=== PATIENT | male | born 1955 | race African-American/Black ===

== ENCOUNTER 2019-12-11 17:28 | Emergency (ER) | payer BC ==
--- NOTE | 2019-12-11 17:47 | ER Document Report ---
ED Medical Screen (RME) - General Chief Complaint: Dizziness Stated Complaint: LIGHTHEADED,BLURRED VISION Time Seen by Provider: 12/11/19 17:35 Primary Care Provider: LIANET GIANG FNP-C [Primary Care Provider] - Follow up as needed Mode of Arrival: Ambulatory Information source: Patient Notes: 64-year-old male presented to ED for complaint of dizziness blurry vision and pain in the back of the head. He states he took some blood pressure medicine 8 and took some gas pills. He states then he got very lightheaded. He states he developed blurry vision in the right eye and then the left eye and then they have gotten that is gotten much better. Now he has a pain in the back of his head. He states is a level 1 pain. He states he does smoke 1/2 pack a day does not drink or use any drugs. He does have a history of high blood pressure his blood pressure right now is 173/93. He took his blood pressure medicine which was clonidine. He states he is also has a history of COPD. Patient is alert oriented respirations regular nonlabored speaking in full sentences. There is no droop to his face. He has no palmar drift. 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 I have greeted and performed a rapid initial assessment of this patient. A comprehensive ED assessment and evaluation of the patient, analysis of test results and completion of medical decision making process will be conducted by an additional ED providers. TRAVEL OUTSIDE OF THE [place] IN LAST 30 DAYS: No - Related Data Allergies/Adverse Reactions: No Known Allergies Allergy (Verified 11/21/16 11:51) Home Medications: clonidine, symbicort Past Medical History - Social History Chew tobacco use (# tins/day): No Frequency of alcohol use: None Drug Abuse: None - Past Medical History Cardiac Medical History: Reports: Hx Hypertension Renal/ Medical History: Denies: Hx Peritoneal Dialysis Past Surgical History: Reports: Hx Appendectomy - Immunizations Hx Diphtheria, Pertussis, Tetanus Vaccination: No Physical Exam - Vital signs Vitals: Temp Pulse Resp BP Pulse Ox 98.1 F 91 16 174/93 H 98 12/11/19 17:34 12/11/19 17:34 12/11/19 17:34 12/11/19 17:34 12/11/19 17:34 Course - Vital Signs Vital signs: Temp Pulse Resp BP Pulse Ox 98.1 F 91 16 174/93 H 98 12/11/19 17:34 12/11/19 17:34 12/11/19 17:34 12/11/19 17:34 12/11/19 17:34 Doctor's Discharge - Discharge Referrals: LIANET GIANG FNP-C [Primary Care Provider] - Follow up as needed
--- NOTE | 2019-12-11 18:04 | RADIOLOGY REPORT (SQ) ---
EXAM DESCRIPTION: CT HEAD WITHOUT IMAGES COMPLETED DATE/TIME: 12/11/2019 5:52 pm REASON FOR STUDY: Headache, blurred vision, dizziness COMPARISON: CT head 11/21/2016 TECHNIQUE: Axial images acquired through the brain without intravenous contrast. Images reviewed wi th bone, brain and subdural windows. Images stored on PACS. All CT scanners at this facility use dose modulation, iterative reconstruction, and/or weight based d osing when appropriate to reduce radiation dose to as low as reasonably achievable (ALARA). [facility]: Dose Right [facility]: CareDose [facility]: Dose Right [facility]: Teradose 4D [facility]: [employer] RADIATION DOSE: CT Rad equipment meets quality standard of care and radiation dose reduction techniq ues were employed. CTDIvol: 53.2 mGy. DLP: 937 mGy-cm.mGy. LIMITATIONS: None. FINDINGS: VENTRICLES: Prominent. CEREBRUM: No mass effect. No hemorrhage. No midline shift. Areas of low density in the white matte r most likely due to chronic micro-vascular ischemic change. No evidence for acute territorial infar ction. CEREBELLUM: No hemorrhage. No alteration of density. No evidence for acute infarction. EXTRAAXIAL SPACES: Age-related involutional change. No fluid collections. ORBITS AND GLOBE: Symmetrical contour of the globes. CALVARIUM: No depressed fracture. PARANASAL SINUSES: No air-fluid level. SOFT TISSUES: No hematoma. IMPRESSION: CHRONIC CHANGES OF ATROPHY AND MICROVASCULAR ISCHEMIA. NO ACUTE PROCESS. EVIDENCE OF ACUTE STROKE: NO. TECHNICAL DOCUMENTATION: JOB ID: [id number] UT-64 Quality ID # [id number]: Final reports with documentation of one or more dose reduction techniques (e.g., Au tomated exposure control, adjustment of the mA and/or kV according to patient size, use of iterative reconstruction technique) 2010 [employer] All Rights Reserved Reading location - IP/workstation name: [email or web address]
[2019-12-11 18:15] LABS: ABSOLUTE BASOPHILS # (AUTO) 0.2 10^3/uL (0.0-0.2); ABSOLUTE EOSINOPHILS # (AUTO) 0.7 10^3/uL (0.0-0.6); ABSOLUTE LYMPHOCYTES (AUTO) 2.7 10^3/uL (0.5-4.7); ABSOLUTE MONOCYTES (AUTO) 0.8 10^3/uL (0.1-1.4); ABSOLUTE NEUT (AUTO) 3.8 10^3/uL (1.7-8.2); BASOPHILS % (AUTO) 1.9 % (0-2); EOSINOPHILS % (AUTO) 8.7 % (0-6); HEMATOCRIT 42.7 % (37.9-51.0); HEMOGLOBIN 14.7 g/dL (13.5-17.0); LYMPHOCYTES % (AUTO) 33.4 % (13-45); MEAN CORPUSCULAR HEMOGLOBIN 31.3 pg (27.0-33.4); MEAN CORPUSCULAR HGB CONC 34.5 g/dL (32.0-36.0); MEAN CORPUSCULAR VOLUME 91 fl (80-97); MONOCYTES % (AUTO) 9.7 % (3-13); PLATELET COUNT 276 10^3/uL (150-450); RED CELL DISTRIBUTION WIDTH 12.6 % (11.5-14.0); SEGMENTED NEUTROPHILS % (AUTO) 46.3 % (42-78); TOTAL CELLS COUNTED % (AUTO) 100 %; WHITE BLOOD COUNT 8.2 10^3/uL (4.0-10.5)
[2019-12-11 18:20] LABS: INTERNATIONAL RATION (INR) 0.89; PROTHROMBIN TIME 12.3 SEC (11.4-15.4)
[2019-12-11 18:21] LABS: PARTIAL THROMBOPLASTIN TIME 21.5 SEC (23.5-35.8)
[2019-12-11 18:36] LABS: ALBUMIN 4.7 g/dL (3.5-5.0); ALKALINE PHOSPHATASE 82 U/L (38-126); ANION GAP 9 (5-19); ASPARTATE AMINO TRANSFERASE 29 U/L (17-59); BILIRUBIN,DIRECT 0.4 mg/dL (0.0-0.4); BILIRUBIN,TOTAL 0.8 mg/dL (0.2-1.3); BLOOD UREA NITROGEN 17 mg/dL (7-20); CALCIUM 10.2 mg/dL (8.4-10.2); CARBON DIOXIDE 28 mmol/L (22-30); CHLORIDE 102 mmol/L (98-107); GLUCOSE 102 mg/dL (75-110); POTASSIUM 3.5 mmol/L (3.6-5.0)
[2019-12-11 18:39] LABS: APPEARANCE,URINE CLEAR; BILIRUBIN,URINE NEGATIVE (NEGATIVE); COLOR,URINE YELLOW; GLUCOSE, URINE NEGATIVE (NEGATIVE); KETONES,URINE NEGATIVE (NEGATIVE); LEUKOCYTE ESTERASE,URINE NEGATIVE (NEGATIVE); NITRITE,URINE NEGATIVE (NEGATIVE); PROTEIN,URINE NEGATIVE (NEGATIVE); URINE SPECIFIC GRAVITY 1.011
--- NOTE | 2019-12-11 21:44 | ER Document Report ---
ED General - General Chief Complaint: Dizziness Stated Complaint: LIGHTHEADED,BLURRED VISION Time Seen by Provider: 12/11/19 17:35 Primary Care Provider: KATYA SABILLON MD [ACTIVE STAFF] - 12/14/19 Mode of Arrival: Ambulatory Notes: Patient is a 64-year-old male who comes emergency department for chief complaint of a headache and elevated blood pressure. He states that he was standing and washing dishes when he started feeling lightheaded, he started getting a headache, he started getting some blurred vision with a headache. He denies visual loss, he states that he had a headache on arrival to the emergency department but this resolved, he denies chest pain, nausea, vomiting, focal numbness or weakness. He denies any current complaints. Patient states that he is on losartan and hydrochlorothiazide, he is supposed on clonidine but he admits that he takes this very irregularly and he missed his dose for this afternoon. He also has a history of smoking and continues to smoke. He states that he stopped taking clonidine for a while but saw his primary care provider within the past week and was restarted on the clonidine. TRAVEL OUTSIDE OF THE [place] IN LAST 30 DAYS: No - Related Data Allergies/Adverse Reactions: No Known Allergies Allergy (Verified 11/21/16 11:51) Home Medications: clonidine, symbicort Past Medical History - General Information source: Patient - Social History Smoking Status: Current Every Day Smoker Chew tobacco use (# tins/day): No Smoking Education Provided: Yes - <3 min Frequency of alcohol use: None Drug Abuse: None Lives with: Family Family History: Malignancy, Hypertension Patient has homicidal ideation: No - Past Medical History Cardiac Medical History: Reports: Hx Hypertension Pulmonary Medical History: Reports: Hx COPD Renal/ Medical History: Denies: Hx Peritoneal Dialysis Past Surgical History: Reports: Hx Appendectomy - Immunizations Hx Diphtheria, Pertussis, Tetanus Vaccination: No Review of Systems - Review of Systems Constitutional: No symptoms reported EENT: No symptoms reported Cardiovascular: See HPI Respiratory: No symptoms reported Gastrointestinal: No symptoms reported Genitourinary: No symptoms reported Male Genitourinary: No symptoms reported Musculoskeletal: No symptoms reported Skin: No symptoms reported Hematologic/Lymphatic: No symptoms reported Neurological/Psychological: See HPI Physical Exam - Vital signs Vitals: Temp Pulse Resp BP Pulse Ox 98.1 F 91 16 174/93 H 98 12/11/19 17:34 12/11/19 17:34 12/11/19 17:34 12/11/19 17:34 12/11/19 17:34 - Notes Notes: GENERAL: Alert, interacts well. No acute distress. HEAD: Normocephalic, atraumatic. EYES: Pupils equal, round, and reactive to light. Extraocular movements intact. ENT: Oral mucosa moist, tongue midline. Oropharynx unremarkable. Airway patent. NECK: Full range of motion. Supple. Trachea midline. No lymphadenopathy. LUNGS: Clear to auscultation bilaterally, no wheezes, rales, or rhonchi. No respiratory distress. Non-tender chest wall. HEART: Regular rate and rhythm. No murmur ABDOMEN: Soft, non-tender. Non-distended. Bowel sounds present in all 4 quadrants. GENITOURINARY: Deferred EXTREMITIES: Moves all 4 extremities spontaneously. No edema, normal radial and dorsalis pedis pulses bilaterally. No cyanosis. BACK: no cervical, thoracic, lumbar midline tenderness. No saddle anesthesia, normal distal neurovascular exam. Moves all extremities in full range of motion. NEUROLOGICAL: Alert and oriented x3. Normal speech. Negative Romberg. Cranial nerves II through XII grossly intact. Strength 5/5 in all extremities. PSYCH: Normal affect, normal mood. SKIN: Warm, dry, normal turgor. No rashes or lesions noted. Course - Re-evaluation Re-evalutation: On my evaluation patient is smiling, conversational, well-appearing. He has no current complaints including denying chest pain, visual changes, focal numbness or weakness, headache. He has a normal neurological exam. He is hypertensive but at this point he has asymptomatic hypertension. CT of the head reviewed from triage and shows no acute findings, general work-up unremarkable. Patient admits to noncompliance with his blood pressure medication although he states that he never had well-controlled blood pressure with his twice a day clonidine and losartan/hydrochlorothiazide. He is requesting discharge. He requests details be given for recommendations as well. I did recommend that the clonidine be discussed with his primary provider and also discussed additional long acting blood pressure medications. I also discussed return precautions in detail. Patient states appreciation and agreement. Stable, asymptomatic, well- appearing at time of discharge. - Vital Signs Vital signs: Temp Pulse Resp BP Pulse Ox 98.1 F 87 16 163/126 H 98 12/11/19 17:34 12/11/19 21:00 12/11/19 21:52 12/11/19 21:52 12/11/19 21:52 - Laboratory Result Diagrams: 12/11/19 18:04 12/11/19 18:04 Laboratory results interpreted by me: 12/11/19 12/11/19 12/11/19 18:04 18:04 18:04 Eos % (Auto) 8.7 H Absolute Eos (auto) 0.7 H APTT 21.5 L Potassium 3.5 L Urine Urobilinogen 12/11/19 18:13 Eos % (Auto) Absolute Eos (auto) APTT Potassium Urine Urobilinogen 2.0 H Discharge - Discharge Clinical Impression: Essential hypertension Headache Qualifiers: Headache type: unspecified Headache chronicity pattern: acute headache Intractability: not intractable Qualified Code(s): R51 - Headache Condition: Stable Disposition: HOME, SELF-CARE Additional Instructions: Your work-up and evaluation is reassuring with no concerning findings except for your elevated blood pressures. Your blood pressures are noted to be very erratic. Continue your long-acting blood pressure medication, follow-up on Friday with your primary provider and discuss taking a long-acting medication in addition to your current one instead of the clonidine because of your very variable blood pressures (and because you do not take the clonidine as scheduled). Return if you develop any concerning symptoms including return headache, chest pain, passing out, or any other concerning symptoms. Referrals: KATYA SABILLON MD [ACTIVE STAFF] - 12/14/19
[2019-12-11 21:56] VITALS: BP 163/126
== END 2019-12-11 21:58 | disposition home or self-care (01) ==
LOC: ER 17:28
DX: R42 Dizziness and giddiness (principal); H53.8 Other visual disturbances; I10 Essential (primary) hypertension
CPT/HCPCS: 36415; 70450; 80053; 81001; 85025; 85610; 85730; 87086; 99284

== ENCOUNTER → 2020-04-17 | Outpatient (CLI) | payer BC ==
--- NOTE | 2020-04-17 16:56 | RADIOLOGY REPORT (SQ) ---
EXAM DESCRIPTION: CT LUNG CANCER SCREENING IMAGES COMPLETED DATE/TIME: 04/17/2020 3:48 pm REASON FOR STUDY: (Z87.891)PERSONAL HISTORY OF NICOTINE DEPENDENCE Z87.891 PERSONAL HISTORY OF JAQUAN NICOLÁS DEPENDENCE Has the patient had a Chest CT scan within the past year? N Was the patient offered tobacco cessation counseling? Y Was the patient engaged in shared decision making for this test? Y Does the patient have signs or symptoms of Lung Cancer? N Is the patient a smoker? Y How many pack years? 20+YEAR How many years since quitting smoking? 0 Patients age: 64Y COMPARISON: None. TECHNIQUE: Low Dose CT scan performed of the chest without intravenous contrast for purposes of scre ening for lung cancer. Images reviewed with lung, soft tissue and bone windows. Reconstructed coron al and sagittal MPR images reviewed. All images stored on PACS. All CT scanners at this facility use dose modulation, iterative reconstruction, and/or weight based d osing when appropriate to reduce radiation dose to as low as reasonably achievable (ALARA). [facility]: Dose Right [facility]: CareDose [facility]: Dose Right [facility]: Teradose 4D [facility]: [employer] RADIATION DOSE: CT Rad equipment meets quality standard of care and radiation dose reduction techniq ues were employed. CTDIvol: 2.1 mGy. DLP: 82 mGy-cm. LIMITATIONS: No technical limitations. FINDINGS: LUNG NODULES: Description: A 4-5 mm subcentimeter pulmonary nodule in the right lower lo be. A few other smaller subcentimeter pulmonary nodules are also noted. REMAINING LUNGS AND PLEURA: Emphysematous changes in the lungs. Scattered minimal areas of scarring in the lungs. No pneumothorax or pleural effusion. The central airways are clear. HILAR AND MEDIASTINAL STRUCTURES: Borderline mediastinal lymph nodes. HEART AND VASCULAR STRUCTURES: Mild atherosclerotic changes involving the thoracic aorta. Mild dila tation of the proximal descending thoracic aorta at the level of the genu of the arch measures 3 poin t 4- 3.5 cm in diameter. No pericardial effusion. No cardiac devices. CORONARY ARTERY CALCIFICATIONS: No significant calcifications. UPPER ABDOMEN, THYROID, BONES, OTHER SOFT TISSUES: Low attenuated left renal cysts. IMPRESSION: 1. BENIGN FINDINGS IN THE LUNGS. NO OTHER CLINICALLY SIGNIFICANT/POTENTIALLY CLINICALLY SIGNIFICANT FINDINGS LUNGRADS: LUNGRADS: 2 BENIGN APPEARANCE OR BEHAVIOR. NODULES WITH A VERY LOW LIKELIHOOD OF BECOMING A CLINICALLY ACTIVE CANCER DUE TO SIZE OR LACK OF GROWTH. MODIFIER: NONE. RECOMMENDATION: Continue annual screening with LDCT in 12 months. COMMENT: CRITERIA: Solid nodule(s): < 6 mm; new < 4 mm. Part solid nodule(s): < 6 mm total diameter on baseline screening. Non solid nodule(s) (GGN): < 20 mm OR ? 20 and unchanged or slowly growing. Category 3 or 4 nodules unchanged for ? 3 months. TECHNICAL DOCUMENTATION: JOB ID: [id number] Quality ID # [id number]: Final reports with documentation of one or more dose reduction techniques (e.g., Au tomated exposure control, adjustment of the mA and/or kV according to patient size, use of iterative reconstruction technique) 2010 [facility] Reading location - IP/workstation name: [email or web address]
== END ==
LOC: RAD 16:00
PROVIDERS: ATTEND Registered Nurse
DX: Z12.2 Encounter for screening for malignant neoplasm of respiratory organs (principal); Z87.891 Personal history of nicotine dependence; R91.8 Other nonspecific abnormal finding of lung field; J43.9 Emphysema, unspecified
CPT/HCPCS: 71271